=== PATIENT | male | born 2000 | race Caucasian/White ===

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

== ENCOUNTER 2023-09-05 19:36 | Emergency (ER) | payer OTHER ==
[~2023-09-05] VITALS: Ht 170.2 cm; Wt 93.4 kg
[~2023-09-05 19:36] MED LIST changes: +LIDOCAINE HCL4 ML TOP; +Zovirax800 MG PO
[2023-09-05 19:51] VITALS: BP 140/97
[2023-09-05] MEDS ORDERED: CLIN300 PO (20:16)
== END 2023-09-05 20:45 | disposition home or self-care (01) ==
LOC: ER 19:36
DX: K04.7 Periapical abscess without sinus (principal); J45.909 Unspecified asthma, uncomplicated; Z79.899 Other long term (current) drug therapy; Z88.0 Allergy status to penicillin
CPT/HCPCS: A9270

== ENCOUNTER 2023-09-06 13:08 | Emergency (ER) | payer OTHER ==
[~2023-09-06] VITALS: Ht 170.2 cm; Wt 93.0 kg
[~2023-09-06 13:08] MED LIST changes: +CLIN300 PO
[2023-09-06 13:55] VITALS: BP 137/96
== END 2023-09-06 15:10 | disposition home or self-care (01) ==
LOC: ER 13:08
DX: K04.7 Periapical abscess without sinus (principal); Z76.0 Encounter for issue of repeat prescription; J45.909 Unspecified asthma, uncomplicated; Z79.899 Other long term (current) drug therapy; Z88.0 Allergy status to penicillin
CPT/HCPCS: 99282; A9270